=== PATIENT | female | born 1950 | race Caucasian/White ===

== ENCOUNTER → 2017-04-15 | Outpatient (CLI) | payer OTHER, MEDICARE | LOC: FIMAGING 09:07 | PROVIDERS: ATTEND Family Medicine | DX: Z12.31 Encounter for screening mammogram for malignant neoplasm of breast (principal) | CPT/HCPCS: G0202 ==

== ENCOUNTER 2017-09-18 21:12 | Observation (INO) | payer OTHER, MEDICARE ==
[2017-09-18 21:45] LABS: PLATELET COUNT 172 10^3/uL (150-400)
--- NOTE | 2017-09-18 21:47 | CPEKG ---
Heart Rate: 89 RR Interval: 674 P-R Interval: 160 QRSD Interval: 76 QT Interval: 364 QTC Interval: 443 P [place]: 50 QRS [place]: 17 T Wave [place]: -28 EKG Severity - BORDERLINE ECG - EKG Impression: SINUS RHYTHM EKG Impression: PROBABLE LEFT ATRIAL ABNORMALITY Electronically Signed By: Elier Jeong 19-Sep-2017 20:45:55
[2017-09-18] MEDS ORDERED: NS 1,000 ML IV ONE (22:11)
--- NOTE | 2017-09-18 22:15 | EDPHY ---
H & P Stated Complaint: Lightheaded, diaphoretic > syncope. VSS, BGL WNL on scene. ref. EMS txfr. Time Seen by Provider: 09/18/17 21:35 HPI/ROS: CHIEF COMPLAINT: Syncope HISTORY OF PRESENT ILLNESS: 67-year-old female presents after a syncopal episode. She was sitting at a table drinking a glass of wine when she became dizzy and diaphoretic. She stood up and then had a witnessed syncopal episode. Her friend caught her and she did not hurt herself. However, she had a prolonged episode of unresponsiveness and her friend started CPR. She awoke after approximately 45 sec and was not confused. Other in her chest being slightly sore from CPR, she feels back to normal. Decreased oral intake today because she was quite dizzy. She had 2 alcoholic beverages prior to this episode. No history of cardiopulmonary disease. REVIEW OF SYSTEMS: complete 10 point ROS negative except at noted in the HPI - Personal History Current Tetanus/Diphtheria Vaccine: Yes Current Tetanus Diphtheria and Acellular Pertussis (TDAP): Yes Tetanus Vaccine Date: 2013 - Medical/Surgical History Hx Asthma: No Hx Chronic Respiratory Disease: No Hx Diabetes: No Hx Cardiac Disease: No Hx Renal Disease: No Hx Cirrhosis: No Hx Alcoholism: No Hx HIV/AIDS: No Hx Splenectomy or Spleen Trauma: No Other PMH: hypothyroid, tonsillectomy - Social History Smoking Status: Never smoked - Physical Exam Exam: General Appearance: Alert, pleasant Eyes: Pupils equal and round, no conjunctival pallor or injection ENT, Mouth: Mucous membranes moist Neck: Normal inspection Respiratory: Lungs are clear to auscultation Cardiovascular: Regular rate and rhythm Gastrointestinal: Abdomen is soft and nontender Neurological: A&O, nonfocal exam Skin: Warm and dry, no rash Extremities: Nontender, no pedal edema Psychiatric: Mood and affect normal Constitutional: Initial Vital Signs Temperature (C) 36.5 C 09/18/17 21:17 Heart Rate 82 09/18/17 21:17 Respiratory Rate 16 09/18/17 21:17 Blood Pressure 138/75 H 09/18/17 21:17 O2 Sat (%) 98 09/18/17 21:17 O2 Delivery Mode Room Air Allergies/Adverse Reactions: No Known Allergies Allergy (Unverified 09/18/17 21:16) Home Medications: Medication Instructions Recorded Levothyroxine [Synthroid 75 mcg 150 mcg PO WE@06 09/18/17 (*)] metFORMIN HCL [Glucophage 500 mg 500 mg PO BIDMEAL 09/18/17 (*)] Ascorbic Acid [Vitamin C 500 mg 500 mg PO DAILY 09/19/17 (*)] Aspirin [Aspirin 81mg (*)] 81 mg PO Q2D 09/19/17 Cetirizine [ZyrTEC 10 mg (*)] 10 mg PO DAILY 09/19/17 Cholecalciferol Vit D3 [Vitamin D3 1,000 units PO DAILY 09/19/17 (*)] Cyanocobalamin [Vitamin B12 (*)] 1,000 mcg PO DAILY 09/19/17 Herbals/Supplements -Info Only 1 ea PO DAILY 09/19/17 Levothyroxine [Synthroid 75 mcg 75 mcg PO SUMOTUTHFRSA@09/19/17 (*)] Zolpidem Tartrate [Ambien 5MG (*)] 5 mg PO HS PRN 09/19/17 metFORMIN HCL [Glucophage 1000 mg] 1,000 mg PO DAILY@12 09/19/17 Medical Decision Making - Diagnostics EKG Interpretation: EKG interpreted by me reveals normal sinus rhythm, rate 89, nonspecific T-wave flattening in the anterior leads. ED Course/Re-evaluation: This patient presents after a syncopal episode. Most likely, she had a vasovagal reaction secondary to decreased oral intake and alcohol ingestion. The prolonged episode of unresponsiveness is concerning and I will need to speak with her friend to further clarify this episode. EKG reveals no evidence of ischemia or dysrhythmia. 11:00 p.m.-I spoke with the patient's friend, who is a retired ICU nurse. The patient was nash and blue around the lips when she was carried into the home. After lying her down, she was not breathing. CPR was initiated. After approximately 45 sec, the patient awoke and started breathing spontaneously. Episode concerning for cardiac dysrhythmia. The hospitalist service was consulted for admission. Differential Diagnosis: Differential diagnosis includes though is not limited to cardiac dysrhythmia, CVA, TIA, GI bleed, sepsis, hypoglycemia. - Data Points Laboratory Results: Laboratory Results 09/18/17 21:35 09/18/17 21:35 Medications Given: Discontinued Medications Enoxaparin Sodium (Lovenox) 40 mg SC DAILY [facility] Stop: 03/18/18 08:59 Last Admin: 09/19/17 08:06 Dose: Not Given Sodium Chloride (Ns) 1,000 mls @ 0 mls/hr IV ONCE ONE; Wide Open PRN Reason: Protocol Stop: 09/18/17 22:12 Last Admin: 09/18/17 22:20 Dose: 1,000 mls Metformin HCl (Glucophage) 1,000 mg PO DAILY@12 [facility] Stop: 03/18/18 11:59 Last Admin: 09/19/17 13:13 Dose: Not Given Departure - Departure Disposition: [facility] Inpatient Acute Clinical Impression: Syncope Qualifiers: Syncope type: unspecified Qualified Code(s): R55 - Syncope and collapse Condition: Serious
[2017-09-18] MEDS ORDERED: ONDANSETRON DISINTEGRATING 4 MG TAB PO PRN (23:06)
[2017-09-18] MEDS ORDERED: ACETAMINOPHEN 325 MG TAB PO PRN (23:06)
[2017-09-18] MEDS ORDERED: ONDANSETRON 4 MG/2 ML VIAL IVP PRN (23:06)
--- NOTE | 2017-09-19 01:19 | PDGENHP ---
History and Physical - Chief Complaint Syncope - History of Present Illness 67 yo F w/ no significant PMHx presents w/ syncope. Patient was sitting on a balcony with a friend drinking beer when she suffered a syncopal episode. She recalls feeling warm, flushed, and diaphoretic just prior to losing consciousness. Her friend, a retired ICU nurse, noted patient was apneic so started CPR. After about 45 seconds patient came to with no signs of confusion or lethargy. She has been asymptomatic since. She states she was running errands all day and had drank and eaten very little. Work-up in the ED has been thus far unremarkable. History Information - Allergies/Home Medication List Allergies/Adverse Reactions: No Known Allergies Allergy (Unverified 09/18/17 21:16) Home Medications: Levothyroxine 09/18/17 [Last Taken Unknown] Metformin HCl 09/18/17 [Last Taken Unknown] I have personally reviewed and updated: family history, medical history - Past Medical History no pertinent PMH - Surgical History Reports: no pertinent surgical hx - Family History Positive for: stroke - Social History Smoking Status: Never smoked Review of Systems Review of Systems: ROS: 10pt was reviewed & negative except for what was stated in HPI & below Physical Exam Physical Exam: Temp Pulse Resp BP Pulse Ox 36.8 C 92 16 132/91 H 95 09/19/17 00:34 09/19/17 00:34 09/19/17 00:34 09/19/17 00:34 09/19/17 00:34 Constitutional: no apparent distress, not in pain Eyes: PERRL, EOMI Ears, Nose, Mouth, Throat: moist mucous membranes, no oral mucosal ulcers Cardiovascular: regular rate and rhythym, no murmur, rub, or gallop Respiratory: no respiratory distress, clear to auscultation Gastrointestinal: normoactive bowel sounds, soft, non-tender abdomen Skin: warm, normal color Musculoskeletal: full muscle strength, no muscle tenderness Neurologic: AAOx3, CN II-XII Intact Psychiatric: interacting appropriately, not anxious Lab Data & Imaging Review 09/18/17 21:35 09/18/17 21:35 WBC 7.08 10^3/uL (3.80-9.50) 09/18/17 21:35 RBC 4.08 10^6/uL (4.18-5.33) L 09/18/17 21:35 Hgb 12.9 g/dL (12.6-16.3) 09/18/17 21:35 Hct 38.6 % (38.0-47.0) 09/18/17 21:35 MCV 94.6 fL (81.5-99.8) 09/18/17 21: MCH 31.6 pg (27.9-34.1) 09/18/17 21: MCHC 33.4 g/dL (32.4-36.7) 09/18/17 21:35 RDW 12.9 % (11.5-15.2) 09/18/17 21:35 Plt Count 172 10^3/uL (150-400) 09/18/17 21: MPV 11.9 fL (8.7-11.7) H 09/18/17 21:35 Neut % (Auto) 49.5 % (39.3-74.2) 09/18/17 21: Lymph % (Auto) 33.3 % (15.0-45.0) 09/18/17 21:35 Alcorn % (Auto) 8.2 % (4.5-13.0) 09/18/17 21:35 Eos % (Auto) 6.8 % (0.6-7.6) 09/18/17 21: Baso % (Auto) 1.1 % (0.3-1.7) 09/18/17 21: Nucleat RBC Rel Count 0.0 % (0.0-0.2) 09/18/17 21: Absolute Neuts (auto) 3.50 10^3/uL (1.70-6.50) 09/18/17 21:35 Absolute Lymphs (auto) 2.36 10^3/uL (1.00-3.00) 09/18/17 21:35 Absolute Monos (auto) 0.58 10^3/uL (0.30-0.80) 09/18/17 21:35 Absolute Eos (auto) 0.48 10^3/uL (0.03-0.40) H 09/18/17 21:35 Absolute Basos (auto) 0.08 10^3/uL (0.02-0.10) 09/18/17 21:35 Absolute Nucleated RBC 0.00 10^3/uL (0-0.01) 09/18/17 21:35 Immature Gran % 1.1 % (0.0-1.1) 09/18/17 21:35 Immature Gran # 0.08 10^3/uL (0.00-0.10) 09/18/17 21:35 Sodium 137 mEq/L (135-145) 09/18/17 21:35 Potassium 3.9 mEq/L (3.3-5.0) 09/18/17 21:35 Chloride 103 mEq/L (97-110) 09/18/17 21:35 Carbon Dioxide 21 mEq/l (22-31) L 09/18/17 21:35 Anion Gap 13 mEq/L (8-16) 09/18/17 21:35 BUN 17 mg/dL (7-23) 09/18/17 21:35 Creatinine 0.7 mg/dL (0.6-1.0) 09/18/17 21:35 Estimated GFR > 60 09/18/17 21:35 Glucose 115 mg/dL (70-100) H 09/18/17 21:35 Calcium 9.3 mg/dL (8.5-10.4) 09/18/17 21:35 Troponin I < 0.012 ng/mL (0.000-0.034) 09/18/17 21:35 Visualized and Interpreted Chest x-ray results: Yes Chest X-Ray results: no infiltrate Visualized and Interpreted EKG results: Yes EKG Interpretation: Positive for: normal sinsus rhythm Assessment & Plan Assessment: 67 yo F w/ no PMHx p/w syncope. Plan: 1. Syncope - Story very c/w vasovagal episode noting severe flushing and diaphoresis just prior to losing consciousness. She has been asymptomatic since and work-up thus far has been reassuring. Bystanders did note she was apneic for about 45 seconds so they performed CPR. - Admit for observation - Monitor on telemetry - Will also order TTE noting unusual duration of episode (45 sec) Diet - Regular Code - Full Ppx - LMWH Dispo - Admit under observation status
[2017-09-19 05:56] LABS: PLATELET COUNT 155 10^3/uL (150-400)
[2017-09-19] MEDS ORDERED: ENOXAPARIN 40 MG/0.4 ML SYR SC SCH (09:00)
--- NOTE | 2017-09-19 10:17 | HOSPPROG ---
Hospitalist Progress Note Assessment/Plan: Blanca is a 67-year-old female who presented with an episode of syncope. She was sitting on a balcony with her friend having a beer when she had a sudden syncopal event. Her friend who is a retired ICU nurse noted that she was adnexal started CPR. After 45 sec the patient improved with no signs of confusion or lethargy. She had eaten and not drink very much that day. She was admitted earlier by the hospitalist. * syncopal event -because her unresponsiveness was 45 sec an echocardiogram has been ordered -On insulation cutter and former she has been in sinus -suspect it was vasovagal *Plan: evaluate echo and if stable, dc this morning Subjective: Blanca feels fine, anxious for dc. Objective: Vital Signs Temp Pulse Resp BP Pulse Ox 37.1 C 70 18 130/80 H 96 09/19/17 08:00 09/19/17 08:00 09/19/17 08:00 09/19/17 08:00 09/19/17 08:00 Laboratory Results 09/19/17 05:28 09/19/17 05:28 09/18/17 09/19/17 09/20/17 05:59 05:59 05:59 Intake Total 1500 Balance 1500 - Physical Exam Constitutional: no apparent distress, appears nourished, not in pain Eyes: PERRL Ears, Nose, Mouth, Throat: hearing normal Cardiovascular: regular rate and rhythym, no murmur, rub, or gallop Respiratory: no respiratory distress Skin: warm, normal color Musculoskeletal: full muscle strength Neurologic: AAOx3 Psychiatric: interacting appropriately ICD10 Worksheet Patient Problems: Problems Problem Status Onset Syncope Acute
--- NOTE | 2017-09-19 11:10 | ASMTCASEMG ---
Living Arrangements What is your living Answers: Alone arrangement? Who do you live with? Type Of Residence What kind of residence do Answers: House you live in? Discharge Plan Comments Coordination Status Comments Notes: Pts case discussed w/ CAREY Puentes. Pt is a 67 y/o female admitted for syncope. Pt will d/c independent when medically stable. No therapies ordered at this time. CM available for changes. Plan: Independent Date Signed: 09/19/2017 11:10 AM Electronically Signed By:MANNY Uribe
[2017-09-19 11:42] VITALS: BP 148/75
--- NOTE | 2017-09-19 11:54 | ECHO ---
[email or web address] [address] [address] Main: [phone] Fax: Transthoracic Echocardiogram Name: MELIZA DELCID MR#: [id number] Study Date: 09/19/2017 Study Time: 09:47 AM Date of : 1950 Age: 67 year(s) Height: 157.5 cm (62 in.) Weight: 65.77 kg (145 lb.) BSA: 1.67 m2 Gender: Female Examination: Echo Indication: Cardiac: syncope Image Quality: Adequate Contrast: Requested by: Aguilar Mayo BP: 130 mmHg/80 mmHg Heart Rate: Rhythm: Normal sinus rhythm Indication: Cardiac: syncope Procedure Staff Communications Systems Engineer: Lucero Schaefer RDCS Reading Physician: Fredrick Syed MD Requesting Provider: Conclusions: No pericardial effusion. Ejection fraction 59%. Mild to moderate mitral regurgitation with normal left atrial size. Mild tricuspid regurgitation. Measurements: Chambers Valvular Assessment AV/MV Valvular Assessment TV/PV Normal Normal Normal Name Value Range Name Value Range Name Value Range Ao Ghazal (2D): 2.7 cm (1.4 cm-2.6 AV Vmax: 1.40 m/s (1 m/s-1.7 PV Vmax: 1.05 m/s (0.6 m/s-0.9 cm) m/s) m/s) IVSd (2D): 0.9 cm (0.6 cm-1.1 AV maxP mmHg ( - ) PV PGmax: 4 mmHg ( - ) cm) AV meanP mmHg ( - ) LVDd (2D): 4.3 cm (3.9 cm-5.3 LVOT Vmax: 1.00 m/s (0.7 m/s-1.1 cm) m/s) LVDs (2D): 2.2 cm (2.1 cm-4 LANG (Vmax): 1.8 cm2 ( - ) cm) LANG (VTI): 2.0 cm ( - ) LVPWd (2D): 0.7 cm ( - ) MV E Vmax: 0.71 m/s ( - ) LVOTd 1.8 cm 1.8 cm mm MV A Vmax: 0.59 m/s ( - ) LVEF (BP): 59 % (>=55 %) MV E/A: 1.20 ( - ) RVDd(2D): 3.1 cm (1.9 cm-3.8 MV PHT: 0.075 s ( - ) cmmm) MVA (PHT): 2.9 s ( - ) Continued Measurements: Chambers Valvular Assessment AV/MV Valvular Assessment TV/PV Name Value Name Value Name Value LADs: 3.7 cm MV DecTime: 225 m/s CVP (est.): 5 mmHg RA Area: 13.4 cm2 MV E' Septal: 0.08 m/s MV E/E' Septal: 8.80 MV E/E' Lateral: 7.00 Patient: MELIZA DELCID Study Date: 09/19/2017 Page 1 of 2 09:47 AM Additional Vessels Name Value Ao Ascendin.4 cm Inferior Vena Cava: 1.3 cm Findings: Left Ventricle: Normal size left ventricle. No LV hypertrophy. Normal global systolic LV function. EF is 59 %. No regional wall motion abnormality. Normal diastolic LV function. Right Ventricle: Normal size right ventricle. Normal RV function. Left Atrium: The left atrium is normal in size. Right Atrium: The right atrium is normal in size. Mitral Valve: The mitral valve is normal in appearance and function. Mild to moderate mitral regurgitation. No mitral stenosis is present. Multiple jets of mitral regurgitation seen. Aortic Valve: The aortic valve is normal in appearance and function. There is no significant aortic valve regurgitation. No aortic valve stenosis is present. Tricuspid Valve: The tricuspid valve is normal in appearance and function. The pulmonary artery pressure is normal. Mild tricuspid regurgitation is present. Pulmonic Valve: The pulmonic valve is normal in appearance and function. Trivial pulmonic valve regurgitation. Aorta: The aorta is normal. Normal size aortic root measuring 2.7 cm. Normal size ascending aorta measuring 2.4 cm. IVC: The IVC is normal sized. Pericardium: No pericardial effusion. No pleural effusion. (No Signature Object) Patient: MELIZA DELCID Study Date: 09/19/2017 Page 2 of 2 09:47 AM [id number]
[2017-09-19] MEDS ORDERED: metFORMIN HCL 500 MG TAB PO SCH ×2 (12:00→18:00)
[2017-09-19] MEDS ORDERED: NON-FORMULARY NEW DRUG (Metformin Hcl [Glucophage 1000 Mg] 1,000 MG) PO SCH (12:00)
--- NOTE | 2017-09-19 15:04 | GDS ---
[f rep st] DISCHARGE SUMMARY DISCHARGE DIAGNOSIS: Syncope, secondary to vasovagal. HISTORY OF PRESENT ILLNESS: Briefly, the patient is a 67-year-old female who presented with an episo de of syncope. She was sitting on a balcony with her friend having a beer. She describes drinking too much alcohol and not eating and drinking much yesterday. She suddenly had a syncopal event. Her frie nd who is a retired ICU nurse noted that she was not breathing and he started CPR. After 45 seconds, the patient improved with no signs of confusion. She was admitted and monitored on the telemetry [facility]. She has been in a sinus rhythm. I reviewed her echocardiogram. This showed nothing acute. DISCHARGE CONDITION: Stable. Blood pressure is 148/75, heart rate is 74, respiratory rate is 12, O2 sats on room air 96%, temperature is 37.2 Celsius. DISCHARGE MEDICATIONS: Please see the EMR. DISCHARGE INSTRUCTIONS: 1. Recommended that she stay well hydrated especially in the setting of drinking alcohol. 2. If she feels warm or feels like she might pass out, to sit down immediately. /[id number]/MODL
[2017-09-20] MEDS ORDERED: LEVOTHYROXINE 75 MCG TAB PO SCH (06:00)
[2017-09-20] MEDS ORDERED: CYANO/VITAMIN B12 1000 MCG TAB PO SCH (09:00)
[2017-09-20] MEDS ORDERED: Herbals/Supplements -Info Only PO SCH (09:00)
[2017-09-20] MEDS ORDERED: CETIRIZINE 10 MG TAB PO SCH (09:00)
[2017-09-20] MEDS ORDERED: ASCORBIC ACID 500 MG TAB PO SCH (09:00)
[2017-09-20] MEDS ORDERED: CHOLECALCIFEROL VIT D3 1,000 UNITS TAB PO SCH (09:00)
[2017-09-21] MEDS ORDERED: ASPIRIN 81 MG CHEWABLE TAB PO SCH (09:00)
[2017-09-25] MEDS ORDERED: LEVOTHYROXINE 75 MCG TAB PO SCH (06:00)
== END 2017-09-19 13:30 | disposition home or self-care (01) ==
LOC: F3E 23:56
PROVIDERS: ADMIT Student in an Organized Health Care Education/Training Program; ATTEND Student in an Organized Health Care Education/Training Program
DX: R55 Syncope and collapse (principal); E03.9 Hypothyroidism, unspecified
CPT/HCPCS: 71046; 93005; 93306; G0378; J1650

== ENCOUNTER → 2018-04-30 | Outpatient (CLI) | payer OTHER, MEDICARE | END | disposition home or self-care (01) | LOC: FIMAGING 10:22 | PROVIDERS: ATTEND Family Medicine | DX: Z12.31 Encounter for screening mammogram for malignant neoplasm of breast (principal); M85.88 Other specified disorders of bone density and structure, other site; E03.9 Hypothyroidism, unspecified; Z79.899 Other long term (current) drug therapy; Z78.0 Asymptomatic menopausal state ==

== ENCOUNTER 2018-09-12 10:34 | Day surgery (SDC) | payer OTHER, MEDICARE ==
--- NOTE | 2018-09-12 11:18 | EDPHY ---
H & P Stated Complaint: "feels like something is stuck in my throat" Time Seen by Provider: 09/12/18 10:51 HPI/ROS: CHIEF COMPLAINT: Difficulty swallowing solid food HISTORY OF PRESENT ILLNESS: The patient presents to the ED with complaints of difficulty swallowing solid food. The patient did have a meat impaction earlier this week. She was able to clear that by drinking carbonated beverages. Since that time the patient has had ongoing difficulty swallowing solid food. She denies any symptoms of impaction at this point time. She has been able to drink liquids. The patient is scheduled to travel tomorrow and presents the emergency department "just wanting to make sure everything is okay. " The patient tempted eat some small pieces of lemon bread 8:00 a.m. this morning and was having a sensation that they were getting stuck. REVIEW OF SYSTEMS: A comprehensive 10 point review of systems is otherwise negative aside from elements mentioned in the history of present illness. Source: Patient Exam Limitations: No limitations - Personal History Current Tetanus/Diphtheria Vaccine: Yes Current Tetanus Diphtheria and Acellular Pertussis (TDAP): Yes Tetanus Vaccine Date: 2013 - Medical/Surgical History Hx Asthma: No Hx Chronic Respiratory Disease: No Hx Diabetes: No Hx Cardiac Disease: No Hx Renal Disease: No Hx Cirrhosis: No Hx Alcoholism: No Hx HIV/AIDS: No Hx Splenectomy or Spleen Trauma: No Other PMH: hypothyroid, tonsillectomy - Social History Smoking Status: Never smoked - Physical Exam Exam: General Appearance: Alert, no distress Eyes: Pupils equal and round no pallor or injection ENT, Mouth: Mucous membranes moist Respiratory: There are no retractions, lungs are clear to auscultation Cardiovascular: Regular rate and rhythm Gastrointestinal: Abdomen is soft and nontender, no masses, bowel sounds normal Neurological: A&O, normal motor function, normal sensory exam, normal cranial nerves Skin: Warm and dry, no rashes Musculoskeletal: Neck is supple nontender Extremities: symmetrical, full range of motion Psychiatric: Patient is oriented X 3, there is no agitation Constitutional: Initial Vital Signs Temperature (C) 36.8 C 09/12/18 10:40 Heart Rate 83 09/12/18 10:40 Respiratory Rate 16 09/12/18 10:40 Blood Pressure 140/96 H 09/12/18 10:40 O2 Sat (%) 97 05/17/19 10:40 O2 Delivery Mode Room Air Allergies/Adverse Reactions: No Known Allergies Allergy (Unverified 09/18/17 21:16) Home Medications: Medication Instructions Recorded Levothyroxine [Synthroid 75 mcg 150 mcg PO WE@09/18/17 (*)] metFORMIN HCL [Glucophage 500 mg 500 mg PO BIDMEAL 09/18/17 (*)] Ascorbic Acid [Vitamin C 500 mg 500 mg PO DAILY 09/19/17 (*)] Aspirin [Aspirin 81mg (*)] 81 mg PO Q2D 09/19/17 Cetirizine [ZyrTEC 10 mg (*)] 10 mg PO DAILY 09/19/17 Cholecalciferol Vit D3 [Vitamin D3 1,000 units PO DAILY 09/19/17 (*)] Cyanocobalamin [Vitamin B12 (*)] 1,000 mcg PO DAILY 09/19/17 Herbals/Supplements -Info Only 1 ea PO DAILY 09/19/17 Levothyroxine [Synthroid 75 mcg 75 mcg PO SUMOTUTHFRSA@09/19/17 (*)] Zolpidem Tartrate [Ambien 5MG (*)] 5 mg PO HS PRN 09/19/17 metFORMIN HCL [Glucophage 1000 mg] 1,000 mg PO DAILY@12 09/19/17 Medical Decision Making ED Course/Re-evaluation: Patient presents to the ED with symptoms of ongoing odynophagia and difficulty swallowing solid food. She has no evidence of an acute impaction at this point time. She is stable nontoxic and well-appearing. I consulted with Dr. Rachid Reardon at 11:30 a.m. He will contact anesthesia to see if it is a possibility to perform a urgent endoscopy on the patient today for evaluation of a possible stricture. Patient has been kept NPO in the emergency department. Last solid intake was at 8:00 a.m.. 12:30 p.m.: Update, Dr. Reardon informs me the patient will undergo upper endoscopy at 3:00 p.m.. I informed the patient of the plan. She is resting comfortably in the room. She remains NPO. Differential Diagnosis: Differential diagnosis considered includes esophageal stricture, esophageal impaction, dehydration Departure - Departure Disposition: To OP Cath/Surgery Clinical Impression: Difficulty swallowing solids Condition: Good
[2018-09-12] MEDS ORDERED: LR 1,000 ML IV ONE (15:08)
[2018-09-12] MEDS ORDERED: fentaNYL 100 MCG/2 ML INJ ONE (15:25)
[2018-09-12] MEDS ORDERED: PROPOFOL/EMULSION 500 MG/50 ML BOTTLE IV ONE (15:25)
--- NOTE | 2018-09-12 15:27 | PDGENHP ---
History & Physical Chief Complaint: Dysphagia History of Present Illness: Food bolus impaction to esophagus. Dysphagia since then Pertinent Past, Social, Family History: PMH: Metabolic syndrome. Hypothyroidism. SH: no tob. Rare ETOH. FH: neg for PUD. Relevant Physical Exam: NAD. HEENT: NC/AT. OP clear. Neck supple. CTA B/L. RRR without m/r/g. GI soft. NABS. NT/ND Cardiorespiratory Assessment: EGD with propofol per anesthesia. ASA IIE
[2018-09-12] MEDS ORDERED: fentaNYL 100 MCG/2 ML INJ IVP PRN (15:43)
[2018-09-12] MEDS ORDERED: ALBUTEROL 3 ML DEYVIAL IH PRN (15:43)
[2018-09-12] MEDS ORDERED: PHENYLEPHRINE HCL 100 MCG/ML SYR IVP PRN (15:43)
[2018-09-12] MEDS ORDERED: ACETAMINOPHEN 500 MG TAB PO PRN (15:43)
[2018-09-12] MEDS ORDERED: NALOXONE HCL 0.4 MG/ML INJ IVP PRN (15:43)
[2018-09-12] MEDS ORDERED: DEXAMETHASONE 4 MG/ML VIAL IVP PRN (15:43)
[2018-09-12] MEDS ORDERED: LR 500 ML IV PRN (15:43)
[2018-09-12] MEDS ORDERED: ONDANSETRON 4 MG/2 ML VIAL IVP PRN (15:43)
--- NOTE | 2018-09-12 15:43 | PDANEPAE ---
ANE History of Present Illness food stuck in esophagus for EGD ANE Past Medical History - Pulmonary History Hx Oxygen in Use at Home: No Hx Sleep Apnea: No - Endocrine History Hx Diabetes: No Hypothyroid: Yes Endocrine History Comment: metabolic syndrome - Chronic Pain History Chronic Pain: No ANE Review of Systems Review of Systems: - Exercise capacity Exercise capacity: >=4 METS ANE Patient History - Allergies Allergies/Adverse Reactions: No Known Allergies Allergy (Unverified 09/18/17 21:16) - Home Medications Home medications: home medication list seen and reviewed Home Medications: Levothyroxine [Synthroid 75 mcg (*)] 150 mcg PO WE@09/18/17 [Last Taken 09/18] metFORMIN HCL [Glucophage 500 mg (*)] 500 mg PO BIDMEAL 09/18/17 [Last Taken 18:00] Ascorbic Acid [Vitamin C 500 mg (*)] 500 mg PO DAILY 09/19/17 [Last Taken Unknown] Aspirin [Aspirin 81mg (*)] 81 mg PO Q2D 09/19/17 [Last Taken 09/18/17] Cetirizine [ZyrTEC 10 mg (*)] 10 mg PO DAILY 09/19/17 [Last Taken 09/18/17] Cholecalciferol Vit D3 [Vitamin D3 (*)] 1,000 units PO DAILY 09/19/17 [Last Taken Unknown] Cyanocobalamin [Vitamin B12 (*)] 1,000 mcg PO DAILY 09/19/17 [Last Taken Unknown ] Herbals/Supplements -Info Only 1 ea PO DAILY 09/19/17 [Last Taken Unknown] Levothyroxine [Synthroid 75 mcg (*)] 75 mcg PO SUMOTUTHFRSA@09/19/17 [Last Taken 09/17/17] Zolpidem Tartrate [Ambien 5MG (*)] 5 mg PO HS PRN 09/19/17 [Last Taken Unknown] metFORMIN HCL [Glucophage 1000 mg] 1,000 mg PO DAILY@12 09/19/17 [Last Taken ] - NPO status NPO Status: no food or drink >8 hours NPO Since - Liquids (Date): 09/12/18 NPO Since - Liquids (Time): 12:15 NPO Since - Solids (Date): 05/17/19 NPO Since - Solids (Time): 08:00 - Anes Hx Anes Hx: no prior problems - Smoking Hx Smoking Status: Never smoked - Alcohol Use Alcohol Use: None - Family Anes Hx Family Anes Hx: none ANE Labs/Vital Signs - Vital Signs Blood Pressure: 150/88 Heart Rate: 81 Respiratory Rate: 20 O2 Sat (%): 99 Height: 157.48 cm Weight: 65.771 kg ANE Physical Exam - Airway Neck exam: FROM Mallampati Score: Class 2 Mouth exam: normal dental/mouth exam - Pulmonary Pulmonary: no respiratory distress - Cardiovascular Cardiovascular: regular rate and rhythym - ASA Status ASA Status: II ANE Anesthesia Plan Anesthesia Plan: GA with mask Urgent/Emergent Case: Ting gil completed preop but documented later for safe timely pt care
--- NOTE | 2018-09-12 15:52 | GIREPORT ---
[facility] - Endoscopy Department Patient Name: Blanca Nicolas Procedure Date: 09/12/2018 3:18 PM Patient Type: Emergency Department Attending MD/ ER Physician: Rachid Reardon MD Procedure: Upper GI endoscopy Indications: Dysphagia, Foreign body in the esophagus Providers: Rachid Reardon MD Medicines: Propofol per Anesthesia Complications: No immediate complications. Description of Procedure: After obtaining informed consent, the endoscope was passed under direct vision. Throughout the procedure, the patient's blood pressure, pulse, and oxygen saturations were monitored continuously. The Endoscope was intro duced through the mouth, and advanced to the second part of duodenum. The [facility] er GI endoscopy was accomplished without difficulty. The patient tolerated e procedure well. Findings: Mucosal changes including ringed esophagus and small-caliber esophagus were found in the middle third of the esophagus and in the lower third of th e esophagus. A TTS dilator was passed through the scope. Dilation with a 12-13.5-15 mm x 5.5 cm CRE balloon dilator was performed to 15 mm. Food (large meat impaction) was found in the lower third of the esophag us. Removal of food was accomplished with a reyes net and rat tooth forceps. The entire examined stomach was normal. The examined duodenum was normal. Estimated Blood Loss: Estimated blood loss: none. Post Op Diagnosis: - Esophageal mucosal changes suggestive of eosinophilic esophagitis. Di lated. - Food in the lower third of the esophagus. Removal was successful. - Normal stomach. - Normal examined duodenum. Recommendation: - Mechanical soft diet. - Use Prilosec (omeprazole) 40 mg PO daily. - Repeat upper endoscopy in 4 weeks for retreatment. - Patient has a contact number available for emergencies. The signs and symptoms of potential delayed complications were discussed with the pat ient. Return to normal activities tomorrow. Written discharge instructions we re provided to the patient. - Thank you for allowing me to be involved in the care of your patient. Attending Participation: I personally performed the entire procedure without the assistance of a fellow, resident or surg ical geriatric nursing assistant. Rachid Reardon MD Rachid Reardon MD 09/12/2018 3:52:04 PM This report has been signed electronicallyDavid MD Caron Number of Addenda: 0 Note Initiated On: 09/12/2018 3:18 PM [email or web address]
[2018-09-12 16:43] VITALS: BP 132/68
--- NOTE | 2018-09-15 08:02 | POSTANESTH ---
Post Anesthetic Evaluation Cardiovascular Status: Normal, Stable Respiratory Status: Normal, Stable Level of Consciousness/Mental Status: Can Participate in Eval Pain Control: Adequate, Prn Tx Ordered Nausea/Vomiting Control: Adequate, Prn Tx Ordered Complications Possibly Related to Anesthesia: None Noted
== END 2018-09-12 16:42 | disposition home or self-care (01) ==
LOC: FSGY 14:57
PROVIDERS: ATTEND Internal Medicine Gastroenterology
DX: T18.128A Food in esophagus causing other injury, initial encounter (principal); M79.5 Residual foreign body in soft tissue; E03.9 Hypothyroidism, unspecified
CPT/HCPCS: 43247; 43249; 99285; C1726; J2704; J3010